=== PATIENT | male | born 2000 | race Caucasian/White ===

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

== ENCOUNTER 2024-08-23 09:38 | Emergency (ER) | payer OTHER ==
[2024-08-23 09:45] VITALS: RESP 18
[2024-08-23] MEDS: KETOROLAC 15 MG/ML 1 ML VIAL IM STA (10:11)
--- NOTE | 2024-08-23 10:13 | ED ---
Back Pain HPI - General Chief Complaint: Back Pain/Injury Stated Complaint: [facility]-Fall/back pain Time Seen by Provider: 08/23/24 09:48 Source: patient, RN notes reviewed Limitations: no limitations - History of Present Illness Initial Comments: This is a 23-year-old male with listed medical history presents emergency department for complaint of thoracic back pain after a fall that occurred yesterday. Patient states that he was at work standing on a platform that is approximately 1 foot off the ground when he fell straight onto his back. Patient denies any sudden loss conscious the time the injury. He is complaining of thoracic back pain is exacerbated on inspiration. He denies dyspnea, radiation of pain, loss of bladder bowel continence or saddle anesthesias. Denies previous surgeries of the lumbar spine. States that he took 650 mg of Tylenol prior to arrival. - Related Data Allergies Allergy/AdvReac Type Severity Reaction Status Date / Time No Known Allergies Allergy Verified 08/23/24 09:45 Review of Systems ROS Statement: Those systems with pertinent positive or pertinent negative responses have been documented in the HPI. ROS Other: All systems not noted in ROS Statement are negative. Past Medical History Past Medical History: No Reported History Past Surgical History: No Surgical Hx Reported Past Psychological History: No Psychological Hx Reported Smoking Status: Never smoker Past Alcohol Use History: Occasional Past Drug Use History: None Reported General Exam Limitations: no limitations Neck exam: Present: normal inspection. Absent: tenderness, meningismus, lymphadenopathy Respiratory exam: Present: normal lung sounds bilaterally. Absent: respiratory distress, wheezes, rales, rhonchi, stridor Cardiovascular Exam: Present: regular rate, normal rhythm, normal heart sounds. Absent: systolic murmur, diastolic murmur, rubs, gallop, clicks GI/Abdominal exam: Present: soft, normal bowel sounds. Absent: distended, tenderness, guarding, rebound, rigid Extremities exam: Present: normal inspection, full ROM, normal capillary refill. Absent: tenderness, pedal edema, joint swelling, calf tenderness Back exam: Present: normal inspection, tenderness (thoracic spine to palpation and on deep inspiration). Absent: CVA tenderness (R), CVA tenderness (L) Neurological exam: Present: alert, oriented X3, CN II-XII intact Course Vital Signs 08/23/24 08/23/24 09:40 10:08 Temperature 97.3 F L Pulse Rate 73 Respiratory 18 18 Rate Blood Pressure 137/89 O2 Sat by Pulse 96 Oximetry Medical Decision Making - Medical Decision Making Was pt. sent in by a medical professional or institution (ESTRELLA Evans, SEMICONDUCTOR EQUIPMENT TECHNICIAN, urgent care, hospital, or custodial...) When possible be specific @ -No Did you speak to anyone other than the patient for history (EMS, parent, family, police, friend...)? What history was obtained from this source @ -No Did you review nursing and triage notes (agree or disagree)? Why? @ -I reviewed and agree with nursing and triage notes Were old charts reviewed (outside hosp., previous admission, EMS record, old EKG, old radiological studies, urgent care reports/EKG's, custodial records)? Report findings @ -No old charts were reviewed Differential Diagnosis (chest pain, altered mental status, abdominal pain women, abdominal pain men, vaginal bleeding, weakness, fever, dyspnea, syncope, headach e, dizziness, GI bleed, back pain, seizure, CVA, palpatations, mental health, musculoskeletal)? @ -Differential Back Pain: Strain, zoster, cauda equina syndrome, epidural abscess, vertebral osteomyel itis, discitis, fracture, subluxation, disc herniation, DJD, spinal stenosis, dissection, AAA, pancreatitis, peptic ulcer disease, pyelonephritis, kidney stone, this is not meant to be an all-inclusive list. EKG interpreted by me (3pts min.). @ -None X-rays interpreted by me (1pt min.). @ -None done CT interpreted by me (1pt min.). @ -CT of the thoracic spine reveals no acute fracture or dislocation U/S interpreted by me (1pt. min.). @ -None done What testing was considered but not performed or refused? (CT, X-rays, U/S, labs)? Why? @ -None What meds were considered but not given or refused? Why? @ -None Did you discuss the management of the patient with other professionals (professionals i.e. ESTRELLA Evans, SEMICONDUCTOR EQUIPMENT TECHNICIAN, lab, RT, psych nurse, director social, receiving associate store, teacher, disability insurance hearing officer, pillowcase turner)? Give summary @ -No Was smoking cessation discussed for >3mins.? @ -No Was critical care preformed (if so, how long)? @ -No Were there social determinants of health that impacted care today? How? (Homelessness, low income, unemployed, alcoholism, drug addiction, transportation, low edu. Level, literacy, decrease access to med. care, long-term, rehab)? @ -No Was there de-escalation of care discussed even if they declined (Discuss DNR or withdrawal of care, Hospice)? DNR status @ -No What co-morbidities impacted this encounter? (DM, HTN, Smoking, COPD, CAD, Cancer, CVA, ARF, Chemo, Hep., AIDS, mental health diagnosis, sleep apnea, morbid obesity)? @ -None Was patient admitted / discharged? Hospital course, mention meds given and route, prescriptions, significant lab abnormalities, going to OR and other pertinent info. @ -Discharge. 23 male presenting with thoracic back pain after fall yesterday. Patient is neruovascularly intact of the bilateral upper and lower extremities. He is provided with dose of Toradol for pain relief. CT of the thoracic spine no acute fracture or dislocation. Recommend that patient continue to rest, ice mid back and use Tylenol Motrin as needed for pain relief. Case discussed with Dr. Longoria Undiagnosed new problem with uncertain prognosis? @ -No Drug Therapy requiring intensive monitoring for toxicity (Heparin, Nitro, Insulin, Cardizem)? @ -No Were any procedures done? @ -No Diagnosis/symptom? @ -thoracic back pain s/p fall Acute, or Chronic, or Acute on Chronic? @ -acute Uncomplicated (without systemic symptoms) or Complicated (systemic symptoms)? @ -uncomplicated Side effects of treatment? @ -No Exacerbation, Progression, or Severe Exacerbation? @ -No Poses a threat to life or bodily function? How? (Chest pain, [place], [place], pneumonia, PE, COPD, DKA, ARF, appy, cholecystitis, CVA, Diverticulitis, Homicidal, Suicidal, threat to staff... and all critical care pts) @ -No Disposition Clinical Impression: Back strain Disposition: HOME SELF-CARE Condition: Good Instructions (If sedation given, give patient instructions): Thoracic Back Strain (ED) Additional Instructions: Please return to the Emergency Department if symptoms worsen or any other concerns. Is patient prescribed a controlled substance at d/c from ED?: No [facility]errals: [facility] [NON-[facility]FF] - 1-2 days (Contact office to become established with a primary care provider. ) None,Stated [Primary Care Provider] - 1-2 days Forms: Area PCPs Time of Disposition: 11:17
--- NOTE | 2024-08-23 11:13 | CT ---
EXAMINATION TYPE: CT thoracic spine wo con DATE OF EXAM: 08/23/2024 COMPARISON: Thoracolumbar spine x-ray 2017 HISTORY: Fall from platform on the back, mid back pain CT DLP: 1765.2 mGycm, Automated Exposure Control for Dose Reduction was Utilized. CONTRAST: CT scan of the thoracic spine performed without contrast. FINDINGS: There are 12 thoracic vertebra are identified. There is slight scoliotic curvature on coronal images. There is no acute fracture or dislocation seen. Vertebral body heights and disc space heights are fo llowed within normal limits. Spinal canal is grossly preserved. The visualized ribs are intact. Visua lized portion of lungs are clear. IMPRESSION: No acute fracture or dislocation in the thoracic spine. [facility] Rom[facility], , 08/23/2024 11:11 AM
[2024-08-23 11:35] VITALS: BP 129/86; PULSE 71; TEMP 97.7
== END 2024-08-23 13:00 | disposition home or self-care (01) ==
LOC: EC 09:38
DX: S29.012A Strain of muscle and tendon of back wall of thorax, initial encounter (principal); W01.0XXA Fall on same level from slipping, tripping and stumbling without subsequent striking against object, initial encounter; Y99.0 Civilian activity done for income or pay
CPT/HCPCS: 72128; 99284; 96372; J1885